=== PATIENT | female | born 1975 | race Caucasian/White ===

== ENCOUNTER 2023-12-05 07:36 | Day surgery (SDC) | payer OTHER ==
[~2023-12-05] VITALS: Ht 167.6 cm; Wt 89.8 kg
[2023-12-05] MEDS ORDERED: MIDAZOLAM 5 MG/5 ML VIAL ONE (09:14)
[2023-12-05] MEDS ORDERED: fentaNYL citrate 0.05 MG/ML VIAL ONE (09:14)
[2023-12-05] MEDS: FENTANYL C 0.025 MG/HR PATCH TD SCH (09:50)
[2023-12-05] MEDS: LIDOCAINE 2% 100 MG/5 ML UJET TP ONE (09:50)
[2023-12-05] MEDS: MIDAZOLAM 2 MG/2 ML VIAL IVP ONE (09:51)
[2023-12-05] MEDS ORDERED: fentaNYL citrate 0.05 MG/ML VIAL IVP ONE (11:25)
== END 2023-12-05 11:25 | disposition home or self-care (01) ==
LOC: MOR 07:36 → MMU 07:38 → MOR 11:25
PROVIDERS: ATTEND Internal Medicine Gastroenterology
DX: K59.00 Constipation, unspecified (principal); K21.9 Gastro-esophageal reflux disease without esophagitis; J45.909 Unspecified asthma, uncomplicated; E78.00 Pure hypercholesterolemia, unspecified; Z90.710 Acquired absence of both cervix and uterus; Z79.899 Other long term (current) drug therapy; Z98.890 Other specified postprocedural states
CPT/HCPCS: 43235; 45378; J2250; J3010